=== PATIENT | female | born 1990 | race Caucasian/White ===

== ENCOUNTER 2018-10-13 11:17 | Emergency (ER) | payer BC ==
[~2018-10-13] VITALS: Ht 154.9 cm; Wt 69.9 kg
[2018-10-13 11:25] VITALS: Ht 154.9 cm; Wt 69.9 kg
[2018-10-13 13:28] VITALS: BP 118/77
== END 2018-10-13 13:28 | disposition home or self-care (01) ==
LOC: ED 11:17
DX: N76.0 Acute vaginitis (principal); J06.9 Acute upper respiratory infection, unspecified; Z11.3 Encounter for screening for infections with a predominantly sexual mode of transmission
CPT/HCPCS: 87491; 87591; J0696

== ENCOUNTER 2018-11-14 19:18 | Emergency (ER) | payer OTHER ==
[~2018-11-14] VITALS: Ht 154.9 cm; Wt 73.0 kg
[2018-11-14 19:25] VITALS: Ht 154.9 cm; Wt 73.0 kg
[2018-11-14 21:35] VITALS: BP 109/75
== END 2018-11-14 21:35 | disposition home or self-care (01) ==
LOC: ED 19:18
DX: J06.9 Acute upper respiratory infection, unspecified (principal); J40 Bronchitis, not specified as acute or chronic
CPT/HCPCS: 87804; J1885; Q0092

== ENCOUNTER 2018-11-28 19:13 | Emergency (ER) | payer OTHER ==
[~2018-11-28] VITALS: Ht 154.9 cm; Wt 69.9 kg
[2018-11-28 19:22] VITALS: Ht 154.9 cm; Wt 69.9 kg
[2018-11-28 22:25] VITALS: BP 111/70
== END 2018-11-28 22:25 | disposition home or self-care (01) ==
LOC: ED 19:13
DX: K52.9 Noninfective gastroenteritis and colitis, unspecified (principal)
CPT/HCPCS: J1885; J2405; J7030

== ENCOUNTER 2018-12-02 19:11 | Inpatient (IN) | payer OTHER ==
[~2018-12-02] VITALS: Ht 154.9 cm; Wt 69.4 kg
[2018-12-02 19:46] VITALS: Ht 154.9 cm; Wt 69.4 kg
[2018-12-02 21:17] LABS: BASOPHIL % 0.5 % (0-2); PLATELET COUNT 236 x10^3mcL (130-400); RED CELL DISTRIBUTION WIDTH 13.6 % (11.5-14.5)
[2018-12-02 21:31] LABS: CALCIUM 7.9 mg/dL (8.5-10.1); CARBON DIOXIDE 30.2 mmol/L (21-32); CHLORIDE SERUM 105 mmol/L (98-107); CREATININE SERUM 0.6 mg/dL (0.6-1.0); GFR1 > 60 mL/min; GLUCOSE SERUM 93 mg/dL (74-106); POTASSIUM SERUM 3.5 mmol/L (3.5-5.1); SODIUM SERUM 140 mmol/L (136-145)
[2018-12-02 21:37] LABS: ALKALINE PHOSPHATASE 58 U/L (46-116); ALT/SGPT 33 U/L (14-59); AST/SGOT 36 U/L (15-37); BILIRUBIN TOTAL 0.25 mg/dL (0.20-1.00); LIPASE 724 IU/L (73-393)
[2018-12-02 21:39] LABS: ALBUMIN 2.9 g/dL (3.4-5.0)
[2018-12-03 00:01] LABS: AMPHETAMINE QUAL UR NONE DETECTED (See below)
[2018-12-03 00:52] VITALS: BP 96/47
[2018-12-03 05:34] VITALS: BP 100/58
[2018-12-03 06:18] LABS: BASOPHIL % 0.4 % (0-2); PLATELET COUNT 224 x10^3mcL (130-400); RED CELL DISTRIBUTION WIDTH 12.9 % (11.5-14.5)
[2018-12-03 06:45] LABS: ALKALINE PHOSPHATASE 48 U/L (46-116); ALT/SGPT 33 U/L (14-59); AST/SGOT 28 U/L (15-37); BILIRUBIN TOTAL 0.2 mg/dL (0.20-1.00); CALCIUM 7.5 mg/dL (8.5-10.1); CARBON DIOXIDE 25.7 mmol/L (21-32); CHLORIDE SERUM 106 mmol/L (98-107); CREATININE SERUM 0.5 mg/dL (0.6-1.0); GFR1 > 60 mL/min; GLUCOSE SERUM 81 mg/dL (74-106); LIPASE 856 IU/L (73-393); PHOSPHOROUS 2.5 mg/dL (2.5-4.9); POTASSIUM SERUM 3.7 mmol/L (3.5-5.1); SODIUM SERUM 138 mmol/L (136-145)
[2018-12-03 06:47] LABS: ALBUMIN 2.4 g/dL (3.4-5.0)
[2018-12-03 09:53] VITALS: BP 105/55
[2018-12-03 18:16] VITALS: BP 95/45
[2018-12-03 20:44] VITALS: BP 101/53
[2018-12-04 05:49] VITALS: BP 92/53
[2018-12-04 06:29] LABS: BASOPHIL % 0.6 % (0-2); PLATELET COUNT 244 x10^3mcL (130-400)
[2018-12-04 06:56] LABS: ALKALINE PHOSPHATASE 50 U/L (46-116); ALT/SGPT 30 U/L (14-59); AST/SGOT 36 U/L (15-37); BILIRUBIN DIRECT 0.09 mg/dL (0.0-0.2); BILIRUBIN TOTAL 0.34 mg/dL (0.20-1.00); CALCIUM 7.7 mg/dL (8.5-10.1); CARBON DIOXIDE 19.3 mmol/L (21-32); CHLORIDE SERUM 106 mmol/L (98-107); CREATININE SERUM 0.5 mg/dL (0.6-1.0); GFR1 > 60 mL/min; LIPASE 822 IU/L (73-393); SODIUM SERUM 139 mmol/L (136-145); TOTAL PROTEIN, SERUM 6.5 g/dL (6.4-8.2)
[2018-12-04 07:25] LABS: ALBUMIN 2.6 g/dL (3.4-5.0)
[2018-12-04 07:36] LABS: GLUCOSE SERUM 55 mg/dL (74-106)
[2018-12-04 09:00] VITALS: BP 101/63
[2018-12-04 14:36] VITALS: BP 101/63
[2018-12-04 14:45] VITALS: BP 101/63
== END 2018-12-04 15:24 | disposition home or self-care (01) | DRG 444 ==
LOC: ED 19:11 → MU 23:57
PROVIDERS: Emergency Medicine; Internal Medicine Pulmonary Disease; ADMIT Internal Medicine Pulmonary Disease
DX: K80.20 Calculus of gallbladder without cholecystitis without obstruction (principal); K85.10 Biliary acute pancreatitis without necrosis or infection
CPT/HCPCS: G0480; J1170; J1885; J2270; J2405; J7030